=== PATIENT | female | born 1950 | race Caucasian/White ===

== ENCOUNTER 2017-12-06 07:30 | Day surgery (SDC) | payer MEDICARE, OTHER, SELFPAY ==
[2017-12-06 07:51] VITALS: BP 134/87; PULSE 75; RESP 16; TEMP 36.3; O2SAT 97; BMI 35.4
[2017-12-06] MEDS: PROPARACAINE 0.5% OPHTH SOL 2 DROPS EYE-OP (08:00)
[2017-12-06] MEDS: CATARACT EYE COMPOUND (10 DROPS/SYRINGE) 3 DROPS EYE-OP (08:05)
--- NOTE | 2017-12-06 09:11 | PM.PREOP ---
Pre-operative Note Interval Note Changes: No
--- NOTE | 2017-12-06 09:12 | P.OP_ITS ---
Operative Date/Time/Diagnoses Pre-op diagnosis: Cataract Right eye Post-op diagnosis: same Procedure & Clinicians Procedure: Cataract Surgery Same procedure as scheduled: Yes Surgeon: Giacomo Thomas Anesthesia Type: MAC +/- and Sedation Operative Notes Procedure in detail: Patient brought to the operating suite. Tetracaine drops placed in the right eye. Patient was prepped and draped in sterile manner. Wire lid speculum was placed in the eye. Betadine drops were placed on the eye. This was irrigated. Lidocaine jelly was placed on the eye. A paracentesis port was created with a side-port blade. 0.1 mL 1% preservative free lidocaine was injected into the anterior chamber. The anterior chamber was deepened with viscoelastic. 2.6 mm keratome was used to create a temporal clear corneal incision. Cystotome and Utrata forceps were used to create continuous tear capsulorrhexis. Balanced salt solution was used to hydro dissect the nucleus. The phacoemulsification handpiece was inserted and the nucleus was removed using the stop and chop technique. The irrigation aspiration handpiece was inserted and the remaining cortex was removed. Anterior chamber was deepened with viscoelastic. An King ZCB00 intraocular lens with a power of 14.0 was injected into the capsular bag. Irrigation aspiration handpiece was inserted and the remaining viscoelastic was removed. Incision was hydrated with balanced salt solution and found to be leak free with pressure with Weck- Carla sponges. 0.1 mL Vigamox injected anterior chamber. 0.3 mL Kenalog 10 mg was injected subconjunctivally. Lid speculum was removed. The patient left the operating room in excellent condition. Complications: none Condition: stable Disposition: same day surgery
--- NOTE | 2017-12-06 09:12 | P.OP.PRE_ITS ---
Pre-operative Note Interval Note Changes: No
[2017-12-06] MEDS: LIDOCAINE JELLY 2% 5 ML 1 APPLIC TOP (09:26)
[2017-12-06] MEDS: TETRACAINE 0.5% OPHTH DROPS 15 ML 2 DROPS EYE-RIGHT (09:26)
[2017-12-06] MEDS: MOXIFLOXACIN OPHTH DROPS 3 ML BOTTLE 2 DROPS INJ (09:26)
[2017-12-06] MEDS: PHENYLEPHRINE/LIDOCAINE VIAL (OR) 0.2 ML EYE-OP (09:26)
[2017-12-06] MEDS: CHONDROIDTIN/SOD HYALURONATE 1.05 ML SYRINGE INTRAOCULA (09:26)
[2017-12-06] MEDS: TRIAMCINOLONE 50 MG/5 ML VIAL INJ (09:27)
[2017-12-06] MEDS: BALANCED SALT IRRIG SOLN NO.2 500 ML, EPINEPHrine 1 MG IRR (09:27)
[2017-12-06 09:40] VITALS: BP 115/76; PULSE 67; RESP 20; TEMP 36.4; O2SAT 95
== END 2017-12-06 09:35 ==
LOC: OR 07:33
PROVIDERS: PCP Nurse Practitioner Family; Visit Provider Ophthalmology
DX: H25.11 Age-related nuclear cataract, right eye (principal)
CPT/HCPCS: J0171; J2250; J3010; J3301

== ENCOUNTER 2017-12-13 12:17 | Day surgery (SDC) | payer MEDICARE, OTHER, SELFPAY ==
[2017-12-13 14:09] VITALS: BP 139/91; PULSE 65; RESP 16; TEMP 36.6; O2SAT 99; BMI 35.4
[2017-12-13] MEDS: PROPARACAINE 0.5% OPHTH SOL 2 DROPS EYE-OP (14:10)
[2017-12-13] MEDS: CATARACT EYE COMPOUND (10 DROPS/SYRINGE) 3 DROPS EYE-OP (14:15)
--- NOTE | 2017-12-13 15:07 | P.OP.PRE_ITS ---
Pre-operative Note Interval Note Changes: No
--- NOTE | 2017-12-13 15:07 | PM.PREOP ---
Pre-operative Note Interval Note Changes: No
--- NOTE | 2017-12-13 15:08 | P.OP_ITS ---
Operative Date/Time/Diagnoses Pre-op diagnosis: Nuclear Cataract Left eye Post-op diagnosis: same Procedure & Clinicians Surgeon: Giacomo Thomas Anesthesia Type: MAC +/- and Sedation Operative Notes Procedure in detail: Patient brought to the operating suite. Tetracaine drops placed in the left eye. Patient was prepped and draped in sterile manner. Wire lid speculum was placed in the eye. Betadine drops were placed on the eye. This was irrigated. Lidocaine jelly was placed on the eye. A paracentesis port was created with a side-port blade. 0.1 mL 1% preservative free lidocaine was injected into the anterior chamber. The anterior chamber was deepened with viscoelastic. 2.6 mm keratome was used to create a temporal clear corneal incision. Cystotome and Utrata forceps were used to create continuous tear capsulorrhexis. Balanced salt solution was used to hydro dissect the nucleus. The phacoemulsification handpiece was inserted and the nucleus was removed using the stop and chop technique. The irrigation aspiration handpiece was inserted and the remaining cortex was removed. Anterior chamber was deepened with viscoelastic. An King ZCB00 intraocular lens with a power of 13.5 was injected into the capsular bag. Irrigation aspiration handpiece was inserted and the remaining viscoelastic was removed. Incision was hydrated with balanced salt solution and found to be leak free with pressure with Weck- Carla sponges. 0.1 mL Vigamox injected anterior chamber. 0.3 mL Kenalog 10 mg was injected subconjunctivally. Lid speculum was removed. The patient left the operating room in excellent condition. Complications: none Condition: stable Disposition: same day surgery
[2017-12-13] MEDS: PHENYLEPHRINE/LIDOCAINE VIAL (OR) 0.2 ML EYE-OP (15:26)
[2017-12-13] MEDS: LIDOCAINE JELLY 2% 5 ML 1 APPLIC TOP (15:27)
[2017-12-13] MEDS: TRIAMCINOLONE 50 MG/5 ML VIAL INJ (15:27)
[2017-12-13] MEDS: MOXIFLOXACIN OPHTH DROPS 3 ML BOTTLE 2 DROPS INJ (15:27)
[2017-12-13] MEDS: CHONDROIDTIN/SOD HYALURONATE 1.05 ML SYRINGE INTRAOCULA (15:27)
[2017-12-13] MEDS: BALANCED SALT IRRIG SOLN NO.2 500 ML, EPINEPHrine 1 MG IRR (15:28)
[2017-12-13 15:43] VITALS: BP 135/85; PULSE 60; RESP 16; TEMP 36.3; O2SAT 98
== END 2017-12-13 15:49 | disposition home or self-care (01) ==
LOC: OR 12:19
PROVIDERS: PCP Nurse Practitioner Family; Visit Provider Ophthalmology
DX: H25.12 Age-related nuclear cataract, left eye (principal)
CPT/HCPCS: J0171; J2250; J3010; J3301

== ENCOUNTER → 2018-10-26 10:55 | Outpatient (CLI) | payer MEDICARE, OTHER, SELFPAY ==
--- NOTE | 2018-10-26 | DI.RAD.S_ITS ---
PROCEDURE: XR FOOT LT MIN 3V INDICATIONS: LEFT FOOT PAIN TECHNIQUE: 3 views of the foot were acquired. COMPARISON: None. FINDINGS: Bones: No fractures or dislocations. No suspicious bony lesions. Mild first MTP joint narrowing with periarticular osteophyte formation. Minimal diffuse narrowing of the interphalangeal joints. Soft tissues: No tibiotalar joint effusion. Achilles tendon appears normal. 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 Dictated by: Dieter CASTELLANO Interpreted: Kayley Martínez MD on 10/26/2018 at 13:05 Approved by: Kayley Martínez M.D. on 10/26/2018 at 13:15
== END ==
PROVIDERS: PCP Nurse Practitioner Family; Visit Provider Nurse Practitioner Family
DX: M79.672 Pain in left foot (principal); M19.072 Primary osteoarthritis, left ankle and foot
CPT/HCPCS: 73630

== ENCOUNTER → 2020-02-14 09:14 | Outpatient (CLI) | payer MEDICARE, OTHER, SELFPAY ==
--- NOTE | 2020-02-14 | DI.ECHO.S_ITS ---
[facility]---------+ [facility] +---------+ : : [address] : : : : [id number] : : : : Phone: [phone]+ Echocardiogram Report + + :Name: TIM GOODWIN Study Date: 02/14/2020 Height: 63 in : :[facility] Weight: 206 lb : : Gender: Female BSA: 2.0 m2 : :: 1950 Age: 69 yrs BP: 155/100 mmHg: :Reason For Study: PALPITATIONS : :Ordering Physician: NETO SWEET Performed By: Nicole Luna : :Referring: NETO SWEET : + + Interpretation Summary Left ventricular systolic function is normal with an estimated ejection fraction of 65 to 70% without any focal wall motion abnormality. There is borderline LVH but probable normal diastolic function and normal filling pressures. The right ventricle appears normal. Right ventricular systolic pressure cannot be estimated but CVP is likely around 3 mmHg. Both atria are normal in size. A trivial patent foramen ovale cannot be entirely excluded but is not well seen, and if present, is extremely small and likely not hemodynamically significant. There is no significant valvular abnormality. The ascending aorta is mildly enlarged. There is a trivial pericardial effusion seen which is likely within normal physiologic limits. Procedure: A two-dimensional transthoracic echocardiogram with color flow and Doppler was performed. The study quality was technically adequate. There is no prior echocardiogram noted for this patient. The patient was in sinus rhythm with heart rates between 55-64 bpm during the exam. Left Ventricle: The left ventricle is normal in size. There is borderline concentric left ventricular hypertrophy. Left ventricular systolic function appears normal without focal wall motion abnormalities. The ejection fraction is estimated to be 65-70%. Diastolic parameters suggest probable normal left ventricular diastolic function and normal filling pressures. Right Ventricle: The right ventricle is normal in size and function. Atria: Both atria are normal in size. The interatrial septum grossly appears intact with no obvious evidence for an atrial septal defect. A trivial patent foramen ovale cannot be excluded, but if present is very small. Mitral Valve: There is mild mitral annular calcification. There is trace mitral regurgitation. Aortic Valve: The aortic valve is trileaflet. The aortic valve opens well. There is no aortic valve stenosis. No aortic regurgitation is present. Tricuspid Valve: The tricuspid valve is normal in structure and function. There is trace tricuspid regurgitation. Pulmonary artery pressures cannot be estimated because of the lack of a measurable TR jet velocity but the IVC suggests a CVP of around 3 mmHg. Pulmonic Valve: The pulmonic valve leaflets are thin and pliable; valve motion is normal. There is trace pulmonic regurgitation. There is no significant valvular heart disease. Great Vessels: The aortic root is normal size. The ascending aorta is mildly enlarged. The IVC is of normal diameter and collapses greater than 50% with a sniff. This suggests a low right atrial pressure of 3 mm Hg. Pericardium/ Pleura There is a trace pericardial effusion that is circumferential. There is no pleural effusion. MMode/2D Measurements & Calculations LVIDd: 5.1 cm LVOT diam: 2.0 cm LVIDs: 3.5 cm Ao root diam: 3.8 cm FS: 32.1 % asc Aorta Diam: 3.6 cm EPSS: 0.37 cm Ao Arch Diam (Prox Trans): 3.1 cm IVSd: 1.1 cm LVPWd: 1.1 cm LV baer. diameter/BSA (cm/m^2): 2.6 LV sys. diameter/BSA (cm/m^2): 1.8 LA A2 area: 17.7 cm2 RA long axis: 4.9 cm LA A4 area: 14.2 cm2 RA area: 14.7 cm2 LA length (vol): 4.8 cm RA vol: 37.2 ml LA vol: 44.7 ml RA : 19.0 ml/m2 LA vol index: 22.8 ml/m2 IVC diam: 1.1 cm RVD1 (basal): 2.8 cm TAPSE: 1.9 cm Doppler Measurements & Calculations Ao V2 max: 136.0 cm/sec LVOT Max Jordan: 107.8 cm/sec Ao V2 mean: 98.2 cm/sec LV V1 max P.6 mmHg Ao max P.4 mmHg LV V1 VTI: 23.0 cm Ao mean P.2 mmHg JAME(I,D): 2.3 cm2 Ao V2 VTI: 30.3 cm JAME(V,D): 2.4 cm2 sev ratio: 0.76 JAME indexed to BSA (cm^2/m^2): 1.2 MV E max jordan: 62.9 cm/sec PA V2 max: 69.5 cm/sec MV A max jordan: 72.3 cm/sec PA V2 mean: 49.5 cm/sec MV E/A: 0.87 PA mean P.1 mmHg Med Peak E' Jordan: 6.3 cm/sec PA pr(Accel): 25.9 mmHg E/E' med: 9.9 Lat Peak E' Jordan: 6.2 cm/sec E/E' lat: 10.2 E/e' average: 10.0 MV dec time: 0.23 sec SV(LVOT): 70.9 ml Reading Physician:12:07 PM
== END ==
PROVIDERS: PCP Nurse Practitioner Family; Referring Provider Nurse Practitioner Family; Visit Provider Nurse Practitioner Family
DX: R00.2 Palpitations (principal); I77.89 Other specified disorders of arteries and arterioles
CPT/HCPCS: 93306

== ENCOUNTER → 2020-03-25 15:59 | Outpatient (CLI) | payer MEDICARE, OTHER, SELFPAY ==
[2020-03-25] MEDS: COVID-19 VACC #1, MRNA(MOD) 100 MCG/0.5 ML VIAL IM (16:02)
== END ==
PROVIDERS: PCP Nurse Practitioner Family; Visit Provider Internal Medicine
DX: Z23 Encounter for immunization (principal)
CPT/HCPCS: 0011A; 91301

== ENCOUNTER → 2020-04-22 16:18 | Outpatient (CLI) | payer MEDICARE, OTHER, SELFPAY ==
[2020-04-22] MEDS: COVID-19 VACC #2, MRNA(MOD) 100 MCG/0.5 ML VIAL IM (16:30)
== END ==
PROVIDERS: PCP Nurse Practitioner Family; Visit Provider Internal Medicine
DX: Z23 Encounter for immunization (principal)
CPT/HCPCS: 0012A; 91301

== ENCOUNTER → 2020-05-05 09:31 | Outpatient (CLI) | payer MEDICARE, OTHER, SELFPAY ==
[2020-05-05 11:01] LABS: COVID19 -Nasal RAPID Negative (Negative)
== END ==
PROVIDERS: PCP Nurse Practitioner Family; Visit Provider Physician Assistant
DX: Z01.812 Encounter for preprocedural laboratory examination (principal); Z20.822 Contact with and (suspected) exposure to COVID-19
CPT/HCPCS: 87635; C9803

== ENCOUNTER → 2020-05-06 14:01 | Outpatient (CLI) | payer MEDICARE, OTHER, SELFPAY ==
--- NOTE | 2020-05-06 14:53 | PM.TREADMILL ---
Cardiac Stress Test Report Referral & Results Date Patient Seen: 05/06/20 Time Patient Seen: 14:54 Requesting provider: Lizbeth Dolan Indication: palpitations Rest ECG: Sinus rhythm Procedure Note: Standard Eze protocol, 6:09; 6.2 Good exercise capacity, KENNETH -6% Normal hemodynamic response to exercise No chest pain or anginal symptoms No significant ST changes at peak exercise No ectopy Impression: Normal exercise stress test Please note: Actual ECG tracings can be found in the PACS system.
--- NOTE | 2020-05-06 19:03 | DI.NM.S_ITS ---
DATE OF SERVICE: PROCEDURE: Exercise stress test. DATE OF STUDY: May 06, 2020 INDICATIONS: Palpitations. EXERCISE TREADMILL TESTING: The patient underwent exercise stress test under the supervision of an attending staff. She walked on Eze protocol for 6 minutes and 9 seconds, achieved 87% of target heart rate. Baseline blood pressure 128/80. Peak blood pressure 150/90. The patient achieved 6.2 METS of workload and functional aerobic impairment -6 percent. Baseline rhythm was sinus. During stress, there were some artifacts, however in the immediate recovery there were no significant ischemic changes seen. No significant arrhythmia seen. The patient felt fatigue and some dyspnea. CONCLUSION: Exercise stress test is negative for inducible ischemia. Good exercise tolerance. Functional aerobic impairment -6%. No significant sustained arrhythmias seen. Normal hemodynamic response. Overall this is a low- risk exercise stress test. Randi Andre - DIGITAL PRODUCT SPECIALIST/viktoria/cs doc#: [id number]/job#: [id number] dd: 05/06/2020 18:11:00 dt: 05/06/2020 18:50:00 DICTATING /COPIES TO: Lizbeth Dolan MD COPIES MNE: RAMY;
== END ==
PROVIDERS: PCP Nurse Practitioner Family; Referring Provider Internal Medicine Cardiovascular Disease; Visit Provider Internal Medicine Cardiovascular Disease
DX: R00.2 Palpitations (principal)
CPT/HCPCS: 93017

== ENCOUNTER → 2023-05-23 10:19 | Outpatient (CLI) | payer MEDICARE, OTHER, SELFPAY ==
--- NOTE | 2023-05-23 | DI.RAD.S_ITS ---
Bone Density Report Name: TIM GOODWIN Age: 72 Sex: Female Ethnicity: White Date of : 1950 Indication: postmenopausal; screening for osteoporosis; Referring Provider: ROULA ZAVALA Study: Bone densitometry was performed. Exam Date: May 23, 2023 Accession number: [id number] Bone Density: Region BMD T-score Z-score Classification AP Spine(L1-L4) 1.003 -0.4 1.9 Normal Femoral Neck (Left) 0.573 -2.5 -0.5 Osteoporosis Total Hip (Left) 0.737 -1.7 0.0 Osteopenia Femoral Neck (Right) 0.616 -2.1 -0.1 Osteopenia Total Hip (Right) 0.776 -1.4 0.3 Osteopenia Total Hip Mean 0.757 -1.6 0.2 Osteopenia World Health Organization criteria for BMD impression classify patients as: Normal (T-score at or above -1.0), Osteopenia (T-score between -1.0 and -2.5), or Osteoporosis (T-score at or below -2.5). 10-year Fracture Risk: FRAX not reported because: Some T-score for Spine Total or Hip Total or Femoral Neck at or below -2.5 Impression: The patient has osteoporosis, based on the Left Femoral Neck T-score. Discussion: INCREASED RISK OF FRACTURE. BONE DENSITY IS UNDESIRABLY LOW AT ONE OR MORE SKELETAL SITES, CONSISTENT WITH POSTMENOPAUSAL OSTEOPOROSIS. This patient's lowest T-score meets the World Health Organization's (WHO) criteria for osteoporosis at one or more sites (T-score -2.5 or below). In untreated patients, the risk of osteoporotic fracture increases approximately two-fold for each 1.0 SD decrease in T-score. Low bone density is not the only risk factor for fracture; also consider factors such as patient's age, frailty or poor health, risk of falling, risk of injury, previous osteoporotic fracture, family history of osteoporosis, cigarette smoking, low body weight, etc. Not everyone with low bone mineral density has osteoporosis; osteomalacia and other metabolic bone disorders should also be considered. Patients who have osteoporosis should be evaluated for specific diseases and conditions (secondary causes) that may cause or contribute to bone loss. The [place] [employer] Endocrinologists (AACE) and National Osteoporosis Foundation (NOF) recommend pharmacologic intervention for all postmenopausal women whose T-score is in this range. The patient should follow a healthful lifestyle (good nutrition with adequate calcium and vitamin D, and appropriate weight-bearing exercise). Follow-Up: Consider a repeat BMD and Vertebral Fracture Assessment (VFA) exam in 2 years or sooner if medically necessary, to reassess this patient's status. Reported by: BREEZY GALO M.D. on 05/23/2023 10:41:00 AM.
== END ==
PROVIDERS: PCP Nurse Practitioner Family; Referring Provider Internal Medicine; Visit Provider Internal Medicine
DX: M81.0 Age-related osteoporosis without current pathological fracture (principal); Z78.0 Asymptomatic menopausal state
CPT/HCPCS: 77080

== ENCOUNTER 2025-02-16 09:25 | Emergency (ER) | payer MEDICARE, OTHER, SELFPAY ==
[2025-02-16] VITALS (10 sets, daily range): BP systolic 156–186; BP diastolic 76–88; PULSE 61–78; RESP 14–24; TEMP 36.1; O2SAT 87–95; BMI 36.0
--- NOTE | 2025-02-16 | DI.CT.S_ITS ---
PROCEDURE: CT ANGIO CHEST PE PROTOCOL INDICATIONS: elevated ddimer TECHNIQUE: After the administration of intravenous contrast, 2 mm thick sections acquired from the pulmonary apices to the posterior costophrenic angles. 3-dimensional maximum intensity projection (MIP) coronal and sagittal reformats were then acquired through the thorax. For radiation dose reduction, the following was used: automated exposure control, adjustment of mA and/or kV according to patient size. COMPARISON: None. FINDINGS: Image quality: Diagnostic. Pulmonary arteries: Pulmonary arteries are normal in size, and demonstrate no intraluminal filling defects to suggest central pulmonary embolism. Lower Neck: No enlarged lymph nodes. Thyroid: No thyroid nodules which require sonographic follow up, per consensus guidelines. Axillae: No enlarged lymph nodes. Subcentimeter lymph nodes are seen in bilateral axilla measures up to 7 mm in size. Chest Wall: Unremarkable. Bones: No aggressive appearing bony lesions.. Lungs and Pleura: No pneumothorax or pleural effusions. Dependent atelectasis in posterior aspect of bilateral mid to lower lung field is seen. No consolidation or suspicious nodules. Heart: Heart size is mildly enlarged. Small pericardial effusion. Thoracic Vessels: No aortic aneurysm. Mediastinum and Amie: No enlarged lymph nodes. Esophagus: No wall thickening. Small hiatal hernia. Upper Abdomen: Visualized upper abdomen solid organs and bowel loops appear normal. IMPRESSION: 1. No pulmonary embolus. No thoracic aortic aneurysm or gross dissection. 2. Dependent atelectasis scattered in bilateral lung gann. No focal infiltrate, pleural effusion or pneumothorax. 3. Cardiomegaly and small pericardial effusion. No mediastinal or hilar lymphadenopathy. Dictated by: Pablo Hughes M.D. on 02/16/2025 at 11:12 Approved by: Pablo Hughes M.D. on 02/16/2025 at 11:16
--- NOTE | 2025-02-16 09:34 | DI.RAD.S_ITS ---
PROCEDURE: XR CHEST 1V INDICATIONS: Shortness of breath TECHNIQUE: One view of the chest was acquired. COMPARISON: None. FINDINGS: Surgical changes and devices: None. Lungs and pleura: Lungs are clear. No pleural effusions or pneumothorax. Mediastinum: Mediastinal contours appear normal. Heart size is enlarged. Bones and chest wall: No suspicious bony lesions. Overlying soft tissues appear unremarkable. IMPRESSION: No acute cardiopulmonary pathology. Dictated by: Pablo Hughes M.D. on 02/16/2025 at 10:03 Approved by: Pablo Hughes M.D. on 02/16/2025 at 10:03
--- NOTE | 2025-02-16 09:36 | EKG_ITS ---
[address] [address] Test Date: 2025-02-16 Pat Name: Randi Andre Department: Room: Gender: Female Division Chief: HIWOT : 1950 Requested By: Order Number: [id number] Reading MD: Rupesh Hinds MD Measurements Intervals Doran Rate: 64 P: 40 WA: 172 QRS: 39 QRSD: 64 T: 65 QT: 390 QTc: 402 Interpretive Statements Normal sinus rhythm Low voltage QRS Cannot rule out Anterior infarct , age undetermined Electronically Signed On 02-17-2025 9:18:50 PST by Rupesh Hinds MD
--- NOTE | 2025-02-16 09:41 | ED_ITS ---
HPI - SOB/Dyspnea General Chief Complaint: Shortness of Breath/Dyspnea Stated Complaint: SOB Time Seen by Provider: 02/16/25 09:40 History of Present Illness HPI Narrative: A 74-year-old female presented to the ED with acute shortness of breath. She has past medical history of hypercholesterolemia and depression, brother with history of pulmonary embolism. The patient reports she was in her usual state of health but has been experiencing depression recently. At the encouragement of a friend, she began taking walks. Earlier today, while walking, she developed sudden-onset shortness of breath. She denies chest pain, diaphoresis, fever, chills, nausea, vomiting, rhinorrhea, cough, congestion, abdominal pain, or diarrhea. The patient stated she became concerned about the possibility of dying and did not want her daughters to receive a call that their mother had been found , which prompted her to present to the ED for evaluation. Related Data Home Medications ?Medication ?Instructions ?Recorded ?Confirmed atorvastatin PO 02/16/25 02/16/25 bupropion HCl PO 02/16/25 02/16/25 losartan PO 02/16/25 02/16/25 sertraline PO 02/16/25 02/16/25 Allergies Allergy/AdvReac Type Severity Reaction Status Date / Time codeine AdvReac Unknown Verified 03/25/20 16:02 Review of Systems Review of Systems Narrative: See HPI. Patient History Social History household members: none Exam Narrative Exam Narrative: Vitals: Reviewed. Hypertensive. Otherwise all other vitals were normal. Gen: Well developed, well nourished, no acute distress Card: Regular rate, no murmurs, rubs, gallops Pulm: No increased work of breathing, clear to auscultation in all lung gann Abd: Soft, nondistended, nontender Ext: No peripheral edema in bilateral lower extremities. Neither lower extremities have increased in diameter Neuro: A&O x 4, moving all 4 extremities spontaneously Psych: Appropriate Initial Vital Signs Initial Vital Signs: Vital Signs Temperature 97.0 F L 02/16/25 09:25 Pulse Rate 72 02/16/25 09:25 Respiratory Rate 20 02/16/25 09:25 Blood Pressure 186/86 H 02/16/25 09:25 Pulse Oximetry 87 L 02/16/25 09:25 Oxygen Delivery Method Room Air 02/16/25 09:25 Scores Wells' Criteria for PE Citation:: 0 Wells' Criteria for DVT Citation:: 0 Course Orders Ordered: ED Orders 02/16/25 09:34 XR chest 1V Stat Complete Blood Count AUTO DIFF Stat Comprehensive Metabolic Panel Stat Lactate (Lactic Acid) Stat NT-proBNP (BNP-Adult 18+) Stat Prothrombin Time INR Stat Troponin I Stat EKG-12 Lead Stat Measure peak expiratory flow STAT RT Consult Eval and Treat STAT MDM - SOB/Dyspnea Lab Data 02/16/25 09:37 02/16/25 09:37 Labs: Lab Results 02/16/25 02/16/25 Range/Units 09:34 09:37 WBC 6.1 (4.5-11.0) X10^3/uL RBC 5.01 (4.0-5.2) X10^6/uL Hgb 14.0 (12.0-16.0) g/dL Hct 40.9 (36-46) % MCV 81.8 (80-100) fL MCH 28.0 (26-34) PG MCHC 34.3 (30-36) % RDW 13.7 (11.6-14.8) % Plt Count 223 (150-400) X10^3/uL Neut % (Auto) 69.0 (50-75) % Lymph % (Auto) 21.2 L (25-40) % [place] % (Auto) 6.8 (3-14) % Eos % (Auto) 2.4 (2-4) % Baso % (Auto) 0.6 (0-2) % Neut # (Auto) 4200 (8299-4753) /uL Lymph # (Auto) 1300 (0089-3235) /uL [place] # (Auto) 400 (0-900) /uL Eos # (Auto) 100 (0-450) /uL Baso # (Auto) 0 (0-100) /uL PT 11.2 (9.4-12.5) SECONDS INR 1.0 (0.9-1.3) D-Dimer 3342 H (<500) ng/ml Sodium 139 (137-145) mmol/L Potassium 4.3 (3.4-5.1) mmol/L Chloride 106 (98-107) mmol/L Carbon Dioxide 25 (22-32) mmol/L BUN 23 H (7-17) mg/dL Creatinine 1.01 (0.52-1.04) mg/dL Estimated GFR 58 L (>60) mL/min BUN/Creatinine Ratio 22.8 H (6-22) Glucose 107 H (70-99) mg/dL Lactate 0.8 (0.7-2.1) mmol/L Calcium 9.4 (8.4-10.2) mg/dL Total Bilirubin 0.8 (0.2-1.3) mg/dL AST 27 (14-36) IU/L ALT 23 (<35) IU/L Alkaline Phosphatase 114 (38-126) U/L Troponin I < 0.012 (0.01-0.034) ng/mL NT-Pro-B Natriuret Pep 84 (<450) pg/mL Total Protein 7.3 (6.3-8.2) g/dL Albumin 4.6 (3.5-5.0) g/dL Globulin 2.7 (1.7-4.1) g/dL Albumin/Globulin Ratio 1.7 (1.0-2.8) Imaging Data Chest x-ray: Radiologist's Impression: PROCEDURE: XR CHEST 1V INDICATIONS: Shortness of breath TECHNIQUE: One view of the chest was acquired. COMPARISON: None. FINDINGS: Surgical changes and devices: None. Lungs and pleura: Lungs are clear. No pleural effusions or pneumothorax. Mediastinum: Mediastinal contours appear normal. Heart size is enlarged. Bones and chest wall: No suspicious bony lesions. Overlying soft tissues appear unremarkable. IMPRESSION: No acute cardiopulmonary pathology. CT scan - chest: Radiologist's Impression: PROCEDURE: CT ANGIO CHEST PE PROTOCOL INDICATIONS: elevated ddimer TECHNIQUE: After the administration of intravenous contrast, 2 mm thick sections acquired from the pulmonary apices to the posterior costophrenic angles. 3-dimensional maximum intensity projection (MIP) coronal and sagittal reformats were then acquired through the thorax. For radiation dose reduction, the following was used: automated exposure control, adjustment of mA and/or kV according to patient size. COMPARISON: None. FINDINGS: Image quality: Diagnostic. Pulmonary arteries: Pulmonary arteries are normal in size, and demonstrate no intraluminal filling defects to suggest central pulmonary embolism. Lower Neck: No enlarged lymph nodes. Thyroid: No thyroid nodules which require sonographic follow up, per consensus guidelines. Axillae: No enlarged lymph nodes. Subcentimeter lymph nodes are seen in bilateral axilla measures up to 7 mm in size. Chest Wall: Unremarkable. Bones: No aggressive appearing bony lesions.. Lungs and Pleura: No pneumothorax or pleural effusions. Dependent atelectasis in posterior aspect of bilateral mid to lower lung field is seen. No consolidation or suspicious nodules. Heart: Heart size is mildly enlarged. Small pericardial effusion. Thoracic Vessels: No aortic aneurysm. Mediastinum and Amie: No enlarged lymph nodes. Esophagus: No wall thickening. Small hiatal hernia. Upper Abdomen: Visualized upper abdomen solid organs and bowel loops appear normal. IMPRESSION: 1. No pulmonary embolus. No thoracic aortic aneurysm or gross dissection. 2. Dependent atelectasis scattered in bilateral lung gann. No focal infiltrate, pleural effusion or pneumothorax. 3. Cardiomegaly and small pericardial effusion. No mediastinal or hilar lymphadenopathy. MDM Narrative Medical decision making narrative: Patient is a 74 year old female with history of depression and hypercholesterolemia who presents with sudden onset of dyspnea. Differential diagnosis: ACS, PE, noncardiogenic pulmonary edema, pneumonia, pulmonary hypertension, cardiac tampnade, other. Labs: CBC with no leukocytosis or left shift, anemia, or thomobocytopenia. Chem planel largely unremarkable or noncontributory; BUN elevated at 23, GFR 58, normal liver enzymes. D-dimer 3342. Troponin neg. EKG: NSR, HR 64, VA 172, QT 390, QTc 402, no axis deviation, low voltage QRS, no ectopy, no evidence of ischemia. Imaging: CXR: Without any cardiopulmonary findings. CTA chest: Pulmonary arteries are normal in size, and demonstrate no intraluminal filling defects to suggest central pulmonary embolism. Dependent atelectasis scattered in bilateral lung gann. No focal infiltrate, pleural effusion or pneumothorax. Consultation: None ER Course: Initial evaluation showed normal vital signs and an unremarkable physical exam. ACS was considered; however, her workup was not suggestive of myocardial ischemia. Her Wells score was 0, but a D-dimer was obtained due to family history of possible recurrent PE/DVT in her brother. The D-dimer returned elevated. After shared decision?making, CT pulmonary angiography was pursued and was negative for pulmonary embolism. Imaging did reveal dependent atelectasis in the bilateral lung bases. Her symptoms were attributed to atelectasis with a possible component of deconditioning. She was advised to follow up with her primary care physician if symptoms persist for further evaluation and management. Discharge Plan Departure Patient Disposition: Home Clinical Impression: Shortness of breath Activity Restrictions/Additional Instructions: You were seen in the emergency department for shortness of breath. In the ER, EKG chest x-ray and cardiac markers were not suggestive of a heart attack. You did have an elevated D-dimer which can be suggestive of a blood clot; however your CT chest was negative for pulmonary embolism (blood clot in your lungs). Your blood counts did not show anemia in your electrolytes were normal. In the ER, your blood pressure was elevated however you stated that your blood pressures are normal at home. Please follow up your primary care physician for continued blood pressure management. Prescriptions: No Action atorvastatin PO bupropion HCl PO losartan PO sertraline PO Referrals: Brinda Vergara ARNP [Primary Care Provider, Family Practice] Stand Alone Forms: Patient Portal/API
[2025-02-16 09:53] LABS: Add Manual Diff / Slide Review NO; Hematocrit 40.9 % (36-46); Hemoglobin 14.0 g/dL (12.0-16.0); Lymphocytes Absolute Auto 1300 /uL (1100-4500); Mean Corpuscular HGB Conc 34.3 % (30-36); Mean Corpuscular Hemoglobin 28.0 PG (26-34); Mean Corpuscular Volume 81.8 fL (80-100); Platelet Count 223 X10^3/uL (150-400)
[2025-02-16 10:04] LABS: INR 1.0 (0.9-1.3); Prothrombin Time 11.2 SECONDS (9.4-12.5)
[2025-02-16 10:08] LABS: Alanine Aminotransferase 23 IU/L (<35); Albumin 4.6 g/dL (3.5-5.0); Albumin Globulin Ratio 1.7 (1.0-2.8); Alkaline Phosphatase 114 U/L (38-126); Blood Urea Nitrogen 23 mg/dL (7-17); Calcium 9.4 mg/dL (8.4-10.2); Carbon Dioxide 25 mmol/L (22-32); Chloride 106 mmol/L (98-107); Estimated Glomerular Filt Rate 58 mL/min (>60); Globulin 2.7 g/dL (1.7-4.1); Glucose 107 mg/dL (70-99); HEMOLYSIS < 15 (0-50); Lactate (Lactic Acid) 0.8 mmol/L (0.7-2.1); Potassium 4.3 mmol/L (3.4-5.1); Sodium 139 mmol/L (137-145); Total Protein 7.3 g/dL (6.3-8.2)
[2025-02-16 10:20] LABS: NT-proBNP (BNP-Adult 18+) 84 pg/mL (<450); Troponin I < 0.012 ng/mL (0.01-0.034)
== END 2025-02-16 12:30 | disposition home or self-care (01) ==
PROVIDERS: Emergency Provider Student in an Organized Health Care Education/Training Program; PCP Registered Nurse
DX: R06.02 Shortness of breath (principal); E78.00 Pure hypercholesterolemia, unspecified; Z82.49 Family history of ischemic heart disease and other diseases of the circulatory system
CPT/HCPCS: 36415; 71045; 71275; 80053; 83605; 83880; 84484; 85025; 85379; 85610; 93005; 93010; 99283; 99284; Q9967

== ENCOUNTER → 2025-02-25 13:45 | Outpatient (CLI) | payer MEDICARE, OTHER, SELFPAY ==
--- NOTE | 2025-02-25 13:46 | DI.ECHO.S_ITS ---
[facility] : : [id number] : : [place] : : [id number] : : Phone: [phone] Echocardiogram Report + + :Name: TIM GOODWIN Study Date: 02/25/2025 Height: 64 in : :[facility] ReadingLocation: Weight: 205 lb : : Gender: Female BSA: 2.0 m2 : :: 1950 Age: 74 yrs BP: 143/82 mmHg: :Reason For Study: SHORTNESS OF BREATH : :Ordering Physician: FAYE, : :KASSANDRA Performed By: Yon Campos : :Referring: KASSANDRA MCKINNEY : + + Interpretation Summary The ejection fraction is estimated to be 60-65%. Grade II diastolic dysfunction with elevated left atrial pressure. The right ventricular systolic function is normal. The right ventricular systolic pressure is estimated to be at least 54 mmHg based on an estimated right atrial pressure of 8 mm Hg. The right atrium is severely dilated. No significant valvular abnormalities. Procedure: A two-dimensional transthoracic echocardiogram with color flow and Doppler was performed. The study quality was technically good. Comparison is made with the echocardiogram of 02/14/2020. The patient was in normal sinus rhythm during the exam. Left Ventricle: The left ventricle is normal in size. There is normal left ventricular wall thickness. There is no ventricular septal defect visualized. The ejection fraction is estimated to be 60-65%. Left ventricular wall motion is normal. Grade II diastolic dysfunction with elevated left atrial pressure. Right Ventricle: The right ventricle is borderline dilated. The right ventricular systolic function is normal. Atria: The left atrial size is normal. The right atrium is severely dilated. There is no Doppler evidence for an interatrial shunt. Mitral Valve: The mitral valve leaflets appear normal. There is no evidence of stenosis, fluttering, or prolapse. There is no mitral regurgitation noted. Aortic Valve: The aortic valve is trileaflet. The aortic valve opens well. There is no hemodynamically significant valvular aortic stenosis. No aortic regurgitation is present. Tricuspid Valve: The tricuspid valve leaflets are thin and pliable. There is trace tricuspid regurgitation. The right ventricular systolic pressure is estimated to be at least 54 mmHg based on an estimated right atrial pressure of 8 mm Hg. Pulmonic Valve: The pulmonic valve is not well visualized. There is no pulmonic valvular regurgitation. Great Vessels: The aortic root is normal size. The dimensions of the ascending aorta are normal. The pulmonary is not well visualized. The IVC is dilated (diameter is greater than 2.1 cm) yet it collapses greater than 50% with a sniff. This suggests a right atrial pressure of 8 mm Hg. Pericardium/ Pleura There is no pericardial effusion. There is no pleural effusion. MMode/2D Measurements & Calculations LVIDd: 5.2 cm LVOT diam: 2.2 cm LVIDs: 3.1 cm Ao root diam: 3.3 cm FS: 40.0 % asc Aorta Diam: 3.4 cm EPSS: 0.51 cm IVSd: 0.93 cm LVPWd: 0.93 cm LV baer. diameter/BSA (cm/m^2): 2.6 LV sys. diameter/BSA (cm/m^2): 1.6 LA A2 area: 19.2 cm2 RA long axis: 5.3 cm LA A4 area: 21.7 cm2 RA area: 22.8 cm2 LA length (vol): 6.8 cm RA vol: 83.8 ml LA vol: 52.2 ml RA : 42.4 ml/m2 LA vol index: 26.4 ml/m2 IVC diam: 2.2 cm TAPSE: 2.1 cm Doppler Measurements & Calculations Ao V2 max: 174.0 cm/sec LVOT Max Jordan: 117.0 cm/sec Ao V2 mean: 128.4 cm/sec LV V1 max P.5 mmHg Ao max P.1 mmHg LV V1 VTI: 25.1 cm Ao mean P.2 mmHg JAME(I,D): 2.5 cm2 Ao V2 VTI: 37.1 cm JAME(V,D): 2.5 cm2 sev ratio: 0.68 JAME indexed to BSA (cm^2/m^2): 1.3 MV E max jordan: 83.7 cm/sec TR max jordan: 340.5 cm/sec MV A max jordan: 102.9 cm/sec TR max P.4 mmHg MV E/A: 0.81 PA V2 max: 97.0 cm/sec Med Peak E' Jordan: 4.1 cm/sec PA V2 mean: 62.5 cm/sec E/E' med: 20.4 PA mean P.7 mmHg Lat Peak E' Jordan: 6.4 cm/sec PA pr(Accel): 65.3 mmHg E/E' lat: 13.2 E/e' average: 16.8 MV dec time: 0.24 sec [facility] 93.8 ml Reading Physician:06:16 PM
== END ==
LOC: ECHO 13:46
PROVIDERS: PCP Registered Nurse; Referring Provider Registered Nurse; Visit Provider Registered Nurse
DX: R06.02 Shortness of breath (principal); R79.81 Abnormal blood-gas level
CPT/HCPCS: 93306